=== PATIENT | female | born 1965 | race Caucasian/White ===

== ENCOUNTER 2019-05-15 16:27 | Emergency (ER) | payer BC, OTHER ==
--- NOTE | 2019-05-15 16:38 | PDOC ---
Rapid Medical Evaluation Medical Evaluation: 05/15/19 16:32 I have performed a brief in-person evaluation of this patient. The patient presents with a chief complaint of: "discomfort" w/ "fluttering" in L chest today. Had similar sxs on and off x 1 week. Former smoker w/ no sig pmhx Pertinent physical exam findings:Stable and well aden I have ordered the following:ekg/labs The patient will proceed to the ED for further evaluation. Discharge Disposition - Diagnosis Chest discomfort - Discharge Dispostion Condition at time of disposition: Stable - Referrals - Patient Instructions - Post Discharge Activity
[2019-05-15 16:50] VITALS: TEMP 97.7; BMI 26.6
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
--- NOTE | 2019-05-15 17:47 | PDOC ---
Documentation entered by Isidro Melton SCRIBE, acting as scribe for Elmira Kenny MD. Elmira Kenny MD: This documentation has been prepared by the Geronimo acevedo Joel, SCRIBE, under my direction and personally reviewed by me in its entirety. I confirm that the documentation accurately reflects all work, treatment, procedures, and medical decision making performed by me. Attending Attestation - Resident Resident Name: Negrito Roman - ED Attending Attestation I have performed the following: I have examined & evaluated the patient, The case was reviewed & discussed with the resident, I agree w/resident's findings & plan - HPI HPI: 05/15/19 17:50 The patient is a 54 year old female with a significant PMH of hysterectomy who presents to the emergency department for evaluation of intermittent chest discomfort with associated palpitations and fluttering for the past 1.5 weeks. Today she had brief episodes of sharp pains in her left chest also described as "fluttering sensation," resolving seconds and maybe some radiation to her left upper shoulder/back, at 2pm. The patient also notes increased gassy yesterday after eating a heavy meal of pasta and meatballs at 830pm. She acknowledges recent stressors secondary to taking care of her mother and aunt, and notes she has had similar episodes of chest discomfort associated with stress in the past. last echo/cards eval was preoperative planning for her CHRIS in 2018. denies increased caffeine intake, usually drinks 1 cup coffee a day denies herbal supplements or sympathomimetic agents, usually takes vit D, tumeric and primrose. Denies fever, chills, SOB, dizziness, weakness, N, V, D, abdominal pain, bladder and bowel problems, leg swelling, No sick contacts or travel. No new changes in medications. no significant family history of CAD/MO or sudden deaths. Allergies: None Past Medical History: As noted above. Social history: Lives with family. Former smoker, ETOH use. No drug use. Surgical history: None reported. Meds: as documented in EMR PMD: Dr. De Anda 05/15/19 18:31 05/15/19 18:37 - Physicial Exam PE: 05/15/19 17:46 Agree with the resident's HPI and PE as documented in the electronic medical record. NAD, well appearing, EOMI, PERRL, nl conjunctiva, anicteric; neck supple. lungs clear, RRR, no murmur, abdomen soft nontender. Back nontender. GR x4, no focal neuro deficits. No peripheral edema. normal color for ethnicity, WWP. - Medical Decision Making 05/15/19 18:35 See HPI for details. Prior notes reviewed, including admissions, discharges and consultations. Vital signs reviewed, wnl. Vital Signs Temp Pulse Resp BP Pulse Ox 97.7 F 74 16 147/70 98 05/15/19 16:39 05/15/19 16:39 05/15/19 16:39 05/15/19 16:39 05/15/19 16:39 DDx chest pain: ACS, coronary vasospasm, NSTEMI, arrhythmia, unstable angina, PE , dissection, PUD, esophageal spasm, GERD, gastritis, costochondritis, pneumonia , pleurisy, pericarditis/myocarditis. dehydration, electrolyte/metabolic derangements. Considered but clinically doubt based on HPI and PE: dissection or PE. laboratory results and imaging reviewed, basic labs and lytes wnl CXR_no acute chest pathology Cardiac panel_neg trop x1, serials EKG normal sinus rhythm at 67 bpm, no interval abnormalities, narrow QRS, ST and T wave segments and morphology normal. ED course - heart score 1, low risk chest pain, estimated mace at 4-6 weeks is <1.7% - no medical comorbidities or risk factors, no sig fam history or findings suggestive of CAD/angina. serial trop/EKG, tele monitor - chest pain free, HD appropriate and well appearing anticipate discharge with cards and PMD followup, referrals to be given, return precautions and anticipatory guidance. 05/15/19 18:36 05/15/19 18:37 05/15/19 22:17 05/15/19 22:18 Heart Score/ECG Review - History History: Slightly suspicious - Electrocardiogram EKG: Normal - Age Age: 45-65 - Risk Factors Based on the list above the patient has:: No risk factors known - Troponin Troponin: </= normal limit - Score Heart Score - Total: 1 #1 ECG reviewed & interpreted by me at: 17:55 General ECG Interpretation: Sinus Rhythm, Normal Rate, Normal Intervals Compared to previous ECG there are: Previous ECG unavail 05/15/19 18:36 EKG normal sinus rhythm at 67 bpm, no interval abnormalities, narrow QRS, ST and T wave segments and morphology normal.
[2019-05-15 18:20] LABS: BASO % 0.5 % (0-2.0); EOS % 0.4 % (0-4.5); HEMATOCRIT 41.3 % (32.4-45.2); HEMOGLOBIN 14.4 GM/dL (10.7-15.3); LYMPH % 22.6 % (8-40); MEAN CELL VOLUME 85.8 fl (80-96); MONO % 6.6 % (3.8-10.2); NEUT % 69.9 % (42.8-82.8); PLATELET COUNT 226 K/MM3 (134-434); RBC 4.81 M/mm3 (3.60-5.2); RDW 13.2 % (11.6-15.6); WHITE BLOOD COUNT 5.9 K/mm3 (4.0-10.0)
[2019-05-15 18:57] LABS: ALBUMIN 4.1 g/dl (3.4-5.0); ALK PHOS 102 U/L (45-117); ANION GAP 8 MMOL/L (8-16); BILIRUBIN,TOTAL 0.9 mg/dL (0.2-1); BLOOD UREA NITROGEN 13.4 mg/dL (7-18); CALCIUM 9.5 mg/dL (8.5-10.1); CHLORIDE 110 mmol/L (98-107); CO2 24 mmol/L (21-32); CREATININE 0.7 mg/dL (0.55-1.3); GLUCOSE,RANDOM 87 mg/dL (74-106); POTASSIUM 3.7 mmol/L (3.5-5.1); SGOT/AST 12 U/L (15-37); SGPT/ALT 17 U/L (13-61); SODIUM 143 mmol/L (136-145); TOT PROT 7.1 g/dl (6.4-8.2)
--- NOTE | 2019-05-15 19:07 | PDOC ---
*Physical Exam - Vital Signs Last Vital Signs Temp Pulse Resp BP Pulse Ox 97.7 F 74 16 147/70 98 05/15/19 16:39 05/15/19 16:39 05/15/19 16:39 05/15/19 16:39 05/15/19 16:39 ED Treatment Course - LABORATORY CBC & Chemistry Diagram: 05/15/19 18:05 05/15/19 18:05 - ADDITIONAL ORDERS Additional order review: Laboratory Results 05/15/19 05/15/19 18:05 18:05 Sodium 143 Potassium 3.7 Chloride 110 H Carbon Dioxide 24 Anion Gap 8 BUN 13.4 Creatinine 0.7 Est GFR (CKD-EPI)AfAm 112.26 Est GFR (CKD-EPI)NonAf 96.86 Random Glucose 87 Calcium 9.5 Magnesium 2.2 Total Bilirubin 0.9 AST 12 L ALT 17 Alkaline Phosphatase 102 Creatine Kinase 57 Troponin I < 0.02 Total Protein 7.1 Albumin 4.1 TSH 0.37 05/15/19 18:05 RBC 4.81 MCV 85.8 MCHC 35.0 RDW 13.2 MPV 8.0 Neutrophils % 69.9 Lymphocytes % 22.6 Monocytes % 6.6 Eosinophils % 0.4 Basophils % 0.5 Medical Decision Making - Medical Decision Making 05/15/19 19:[address] Roman 54f with [facility] of anxiety presents with "heart flutters" for 1.5 week. Workup negative Signed out to follow up 2nd trop at 9pm and if wnl then DC 05/15/19 22:28 2nd trop negative; waiting EKG Signed out Dr Loza to followup EKG and likely DC home with return pcxn *DC/Admit/Observation/Transfer Diagnosis at time of Disposition: Chest discomfort - Discharge Dispostion Disposition: HOME Condition at time of disposition: Stable - Referrals Referrals: Reza Wheeler MD [Staff Physician] - Eugenio De Anda MD [Primary Care Provider] - Ceferino Acosta MD [Staff Physician] - Emanuel Hardy MD [Staff Physician] - - Patient Instructions Printed Discharge Instructions: DI for Chest Pain Additional Instructions: Follow up with any of the suggested cardiologists within the week. Come back to the emergency department for any new, worsening or concerning symptom. - Post Discharge Activity
[2019-05-15 19:33] VITALS: BP 119/66; PULSE 76
--- NOTE | 2019-05-15 22:43 | PDOC ---
*Physical Exam - Vital Signs Last Vital Signs Temp Pulse Resp BP Pulse Ox 97.7 F 76 18 119/66 96 05/15/19 16:39 05/15/19 19:33 05/15/19 19:33 05/15/19 19:33 05/15/19 19:33 - Physical Exam Comments: 05/16/19 06:52 Gen: Alert, NAD, comfortable-appearing. HEENT: PERRL, EOMI, MMM, NCAT. No conjunctival pallor. Sclera are non-icteric. Oropharynx is clear. CV: Regular rate and rhythm. No murmurs, rubs, or gallops. PULM: No resp distress. CTAB, no wheezes, rales, or rhonchi. ABD: soft, NT/ND, no rebound tenderness or guarding, no CVA tenderness. BACK: No TTP of c/t/l-spine. No step-offs or deformities. MSK: No bony deformities. 2+ pulses in all extremities. NEURO: AAOx3. PERRL. No gross CN deficits. Strength and sensation grossly intact throughout. EXTREMITIES: No cyanosis. No clubbing. No edema. No calf tenderness. PSYCH: Normal mood and thought pattern. SKIN: Warm and dry. Normal capillary refill. No rashes. No jaundice. Heart Score/ECG Review - ECG Impressions Comment:: 05/16/19 06:50 NSR, 75bpm, normal axis, TWI in V2, no STEs ED Treatment Course - LABORATORY CBC & Chemistry Diagram: 05/15/19 18:05 05/15/19 18:05 - ADDITIONAL ORDERS Additional order review: Laboratory Results 05/15/19 05/15/19 05/15/19 21:30 18:05 18:05 Sodium 143 Potassium 3.7 Chloride 110 H Carbon Dioxide 24 Anion Gap 8 BUN 13.4 Creatinine 0.7 Est GFR (CKD-EPI)AfAm 112.26 Est GFR (CKD-EPI)NonAf 96.86 Random Glucose 87 Calcium 9.5 Magnesium 2.2 Total Bilirubin 0.9 AST 12 L ALT 17 Alkaline Phosphatase 102 Creatine Kinase 57 Troponin I < 0.02 < 0.02 Total Protein 7.1 Albumin 4.1 TSH 0.37 05/15/19 18:05 RBC 4.81 MCV 85.8 MCHC 35.0 RDW 13.2 MPV 8.0 Neutrophils % 69.9 Lymphocytes % 22.6 Monocytes % 6.6 Eosinophils % 0.4 Basophils % 0.5 Medical Decision Making - Medical Decision Making 05/15/19 22:41 Received sign out from Dr Schulz. 54yo F hx anxiety presenting with palpitations EKG PVCs when symptomatic, normal when asymptomatic, 1st trop neg, 2nd trop neg Pending 3nd EKG >dc if negative Pt seen and assessed at bedside. 05/15/19 22:54 3rd EKG at 22:13: NSR, 75bpm, normal axis, no SHIRIN, +TWI in V2, no PVCs Pt feels well, denies CP, palpitations, or other complaints. Dc home with protein scientist f/u. Return precautions given. Pt understands all dc instructions and all questions were answered. *DC/Admit/Observation/Transfer Diagnosis at time of Disposition: Chest discomfort - Discharge Dispostion Disposition: HOME Condition at time of disposition: Stable Decision to Admit order: No - Referrals Referrals: Reza Wheeler MD [Staff Physician] - Eugenio De Anda MD [Primary Care Provider] - Ceferino Acosta MD [Staff Physician] - Emanuel Hardy MD [Staff Physician] - - Patient Instructions Printed Discharge Instructions: DI for Chest Pain Additional Instructions: You have been seen in the Emergency Department for your palpitations. Follow up with any of the suggested cardiologists within the week. Come back to the emergency department for any chest pain, palpitations, difficulty breathing, or any new, worsening or concerning symptom. - Post Discharge Activity
--- NOTE | 2019-05-16 14:02 | EKG ---
Test Reason : Blood Pressure : / mmHG Vent. Rate : 067 BPM Atrial Rate : 067 BPM P-R Int : 168 ms QRS Dur : 076 ms QT Int : 402 ms P-R-T Axes : 060 014 036 degrees QTc Int : 424 ms POOR DATA QUALITY, INTERPRETATION MAY BE ADVERSELY AFFECTED NORMAL SINUS RHYTHM LOW VOLTAGE QRS BORDERLINE ECG NO PREVIOUS ECGS AVAILABLE Confirmed by WAQAR PICKETT MD ([id number]) on 05/16/2019 2:02:07 PM Referred By: Confirmed By:WAQAR PICKETT MD
--- NOTE | 2019-05-16 14:02 | EKG ---
Test Reason : Blood Pressure : / mmHG Vent. Rate : 075 BPM Atrial Rate : 075 BPM P-R Int : 172 ms QRS Dur : 082 ms QT Int : 382 ms P-R-T Axes : 070 020 061 degrees QTc Int : 426 ms NORMAL SINUS RHYTHM POSSIBLE LEFT ATRIAL ENLARGEMENT BORDERLINE ECG WHEN COMPARED WITH ECG OF 15-MAY-2019 17:52, NO SIGNIFICANT CHANGE WAS FOUND Confirmed by WAQAR PICKETT MD ([id number]) on 05/16/2019 2:01:26 PM Referred By: Confirmed By:WAQAR PICKETT MD
--- NOTE | 2019-05-16 14:03 | EKG ---
Test Reason : Blood Pressure : / mmHG Vent. Rate : 076 BPM Atrial Rate : 076 BPM P-R Int : 168 ms QRS Dur : 074 ms QT Int : 390 ms P-R-T Axes : 061 012 048 degrees QTc Int : 438 ms POOR DATA QUALITY, INTERPRETATION MAY BE ADVERSELY AFFECTED SINUS RHYTHM WITH OCCASIONAL PREMATURE VENTRICULAR COMPLEXES OTHERWISE NORMAL ECG NO PREVIOUS ECGS AVAILABLE Confirmed by WAQAR PICKETT MD ([id number]) on 05/16/2019 2:03:01 PM Referred By: Confirmed By:WAQAR PICKETT MD
== END 2019-05-15 23:04 | disposition home or self-care (01) ==
LOC: JER 16:27
DX: R07.89 Other chest pain (principal); F41.9 Anxiety disorder, unspecified
CPT/HCPCS: 36415; 71046-TC-FY; 80053; 82550; 83735; 84443; 84484; 85025; 93005; 93010; 99284-25

== ENCOUNTER 2025-01-09 00:07 | Observation (INO) | payer BC, OTHER ==
[2025-01-09] MEDS ORDERED: FAMOTIDINE 20 MG/50 ML IVPB 20 MG/50 ML MG IVPB ONE (01:13)
[2025-01-09] MEDS ORDERED: ONDANSETRON 4 MG/2 ML VIAL ONE (01:13)
[2025-01-09] MEDS ORDERED: MAG HYDROX/AL HYDROX/SIMETH 30 ML UNIT-DOSE CUP ONE (01:13)
[2025-01-09] MEDS: MAG HYDROX/AL HYDROX/SIMETH 30 ML UNIT-DOSE CUP PO ONE (01:23)
[2025-01-09] MEDS: FAMOTIDINE 20 MG/50 ML IVPB 20 MG/50 ML MG IVPB ONE (01:23)
[2025-01-09] MEDS: ONDANSETRON 4 MG/2 ML VIAL IVPUSH ONE (01:24)
[2025-01-09 01:37] LABS: ABSOLUTE IMMATURE GRANULOCYTES 0.05 x10^3/uL (0.0-0.031); BASOPHILS # 0.05 x10^3/uL (0.01-0.08); EOSINOPHIL % 0.3 % (0.7-5.8); EOSINOPHILS # 0.04 x10^3/uL (0.04-0.36); HEMATOCRIT 47.2 % (34.1-44.9); MCHC 33.9 g/dl (32.2-35.5); MEAN CELL VOLUME 86.8 fl (79.4-94.8); MEAN PLT VOLUME 9.6 fl (9.4-12.3); MONOCYTE # 0.85 x10^3/uL (0.24-0.86); MONOCYTE % 5.6 % (4.7-12.5); PLATELET COUNT 275 x10^3/uL (182-369); RDW 11.8 % (12.4-16.4)
[2025-01-09 01:38] LABS: URINE APPEARANCE CLEAR; URINE BILIRUBIN NEGATIVE (NEGATIVE); URINE COLOR YELLOW; URINE GLUCOSE (UA) NEGATIVE (NEGATIVE); URINE KETONE TRACE (NEGATIVE); URINE LEUK ESTERASE NEGATIVE (NEGATIVE); URINE NITRITE NEGATIVE (NEGATIVE); URINE PROTEIN NEGATIVE (NEGATIVE); URINE UROBILINOGEN 0.2 mg/dL (0.2-1.0)
[2025-01-09 01:58] LABS: POTASSIUM 4.8 mmol/L (3.5-5.1)
[2025-01-09 02:00] LABS: CALCIUM 9.8 mg/dL (8.5-10.1)
[2025-01-09 02:01] LABS: ALBUMIN 4.2 g/dl (3.4-5.0); BLOOD UREA NITROGEN 25.3 mg/dL (7-18)
[2025-01-09 02:04] LABS: CREATININE 0.8 mg/dL (0.55-1.3)
[2025-01-09 02:05] LABS: BILIRUBIN,TOTAL 0.9 mg/dL (0.2-1); TOT PROT 7.5 g/dl (6.4-8.2)
[2025-01-09 02:55] LABS: HCV DIAGNOSTIC IN-HOUSE W/RFLX NON-REACTIVE (NONREACTIVE); HIV INTERPRETATION NEGATIVE (NEGATIVE)
[2025-01-09] MEDS: SODIUM CHLORIDE 0.9% 500 ML INFUS.BAG IV ONE (03:19)
[2025-01-09] MEDS ORDERED: ACETAMINOPHEN INJECTION 100 ML ONE (07:44)
[2025-01-09] MEDS: ACETAMINOPHEN 1000 MG/100 ML BAG IVPB ONE (07:49)
[2025-01-09] MEDS ORDERED: ONDANSETRON 4 MG/2 ML VIAL IVPUSH PRN (09:14)
[2025-01-09 10:02] VITALS: RESP 18; BMI 25.4
[2025-01-09 10:50] LABS: HEMATOCRIT 43.4 % (34.1-44.9); HEMOGLOBIN 14.8 g/dL (11.2-15.7); MCHC 34.1 g/dl (32.2-35.5); MEAN CELL VOLUME 87.1 fl (79.4-94.8); MEAN PLT VOLUME 9.5 fl (9.4-12.3); PLATELET COUNT 239 x10^3/uL (182-369)
[2025-01-09] MEDS: LACTATED RINGERS SOLUTION 1,000 ML/1,000 ML INFUS.BAG IV SCH (11:31)
[2025-01-09] MEDS: SIMETHICONE 40 MG/0.6 ML BOTTLE PO PRN (17:21)
[2025-01-09] MEDS: ACETAMINOPHEN 500 MG TABLET (FP) PO PRN (18:27)
[2025-01-09] MEDS: HEPARIN NA (PORCINE) 5,000 UNITS/ML 1ML VIAL SQ SCH (21:24)
[2025-01-10 08:57] LABS: HEMATOCRIT 42.2 % (34.1-44.9); HEMOGLOBIN 14.3 g/dL (11.2-15.7); MCHC 33.9 g/dl (32.2-35.5); MEAN CELL VOLUME 87.6 fl (79.4-94.8); MEAN PLT VOLUME 9.6 fl (9.4-12.3); PLATELET COUNT 225 x10^3/uL (182-369)
[2025-01-10 09:26] LABS: POTASSIUM 4.1 mmol/L (3.5-5.1)
[2025-01-10 09:33] LABS: BLOOD UREA NITROGEN 13.9 mg/dL (7-18)
[2025-01-10 09:35] LABS: CALCIUM 8.8 mg/dL (8.5-10.1); CREATININE 0.7 mg/dL (0.55-1.3)
[2025-01-10 09:36] LABS: MAGNESIUM 2.2 mg/dL (1.8-2.4); PHOSPHOROUS 2.9 mg/dL (2.5-4.9)
[2025-01-10 15:09] VITALS: BP 124/83; PULSE 69; TEMP 98.1
== END 2025-01-10 15:34 | disposition home or self-care (01) ==
LOC: JER 00:07 → JERBED 07:38 → J6S 09:15
PROVIDERS: ADMIT Student in an Organized Health Care Education/Training Program; ATTEND Internal Medicine
PROC: 3E033NZ Introduction of Analgesics, Hypnotics, Sedatives into Peripheral Vein, Percutaneous Approach (ICD-10-PCS; principal; 2025-01-09)
PROC: 3E023GC Introduction of Other Therapeutic Substance into Muscle, Percutaneous Approach (ICD-10-PCS; 2025-01-09)
PROC: 3E033GC Introduction of Other Therapeutic Substance into Peripheral Vein, Percutaneous Approach (ICD-10-PCS; 2025-01-09)
PROC: 3E0337Z Introduction of Electrolytic and Water Balance Substance into Peripheral Vein, Percutaneous Approach (ICD-10-PCS; 2025-01-09)
DX: K56.609 Unspecified intestinal obstruction, unspecified as to partial versus complete obstruction (principal); R10.9 Unspecified abdominal pain; E78.5 Hyperlipidemia, unspecified; Z90.79 Acquired absence of other genital organ(s); Z87.891 Personal history of nicotine dependence; D72.829 Elevated white blood cell count, unspecified
CPT/HCPCS: 36415; 74019-TC-FY; 74177-TC; 80048; 80053; 81003; 83605; 83690; 83735; 84100; 85025; 85027; 86803; 87086; 87389; 93005; 93010; 99285-25; G0378